=== PATIENT | female | born 2005 | race American Indian/Alaskan Native ===

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

== ENCOUNTER → 2023-06-04 13:28 | Outpatient (CLI) | payer MEDICAID, SELFPAY ==
[2019-06-25 05:36] VITALS: BMI 39.2
[2023-06-04 14:06] LABS: Add Manual Diff / Slide Review NO; Basophils Absolute Auto 0 /uL (0-100); Basophils Percent Auto 0.3 % (0-2); Eosinophils Absolute Auto 100 /uL (0-450); Eosinophils Percent Auto 0.5 % (2-4); Hematocrit 34.1 % (36-46); Hemoglobin 11.4 g/dL (12.0-16.0); Lymphocytes Absolute Auto 2300 /uL (1100-4500); Lymphocytes Percent Auto 19.6 % (25-40); Mean Corpuscular HGB Conc 33.5 % (30-36); Mean Corpuscular Hemoglobin 28.1 PG (26-34); Mean Corpuscular Volume 83.9 fL (80-100); Monocytes Absolute Auto 500 /uL (0-900); Monocytes Percent Auto 4.4 % (3-14); Neutrophils Absolute Auto 9000 /uL (1500-7000); Neutrophils Percent Auto 75.2 % (50-75); Platelet Count 368 X10^3/uL (150-400); Red Blood Cell Count 4.07 X10^6/uL (4.0-5.2); Red Cell Distribution Width 15.3 % (11.6-14.8)
[2023-06-04 15:11] LABS: Appearance Urine UA CLEAR; Bilirubin Urine UA NEGATIVE (NEGATIVE); Color Urine UA YELLOW; Glucose Urine UA NEGATIVE (Negative); Ketones Urine UA NEGATIVE (NEGATIVE); Leukocyte Esterase Urine UA NEGATIVE (NEGATIVE); Nitrite Urine UA NEGATIVE (Negative); Occult Blood Urine UA NEGATIVE (Negative); Protein Urine UA NEGATIVE (Negative); Specific Gravity Urine UA 1.015 (1.000-1.035); Urobilinogen Urine UA 0.2 E.U./dL (0.2)
[2023-06-05 03:23] LABS: RPR Screen Non Reactive (Non Reactive)
[2023-06-05 09:11] LABS: Varicella IgG Antibody 545 index (Immune >165)
[2023-06-05 16:47] LABS: Hepatitis B Surface Antigen NEGATIVE s/c (NEGATIVE); Rubella Antibody IgG 5.3 IU/mL (>15)
[2023-06-05 17:03] LABS: HIV 1 & 2 Ab/Ag 4th Gen Combo NEGATIVE (NEGATIVE); Hep C Virus Ab w/Reflex Quant NEGATIVE s/c (NEGATIVE)
== END ==
PROVIDERS: Referring Provider Student in an Organized Health Care Education/Training Program; Visit Provider Student in an Organized Health Care Education/Training Program
DX: Z34.80 Encounter for supervision of other normal pregnancy, unspecified trimester (principal)
CPT/HCPCS: 36415; 80055; 81003; 86787; 86803; 86850; 86900; 86901; 87086; 87389

== ENCOUNTER → 2023-07-16 11:00 | Outpatient (CLI) | payer MEDICAID, SELFPAY ==
[2019-06-25 05:36] VITALS: BMI 39.2
--- NOTE | 2023-07-16 11:01 | DI.US.S_ITS ---
PROCEDURE: US OB >= 14 WEEKS FETUS INDICATIONS: 20 week anatomy scan OUTSIDE/PRIOR DATING DATA: Last menstrual period (LMP): 01/26/2023 LMP-based estimated date of delivery (JAYDE): 11/02/2023 First dating scan (date and location): Not available Estimated date of delivery (JAYDE) from first dating scan: Not available The calculations are made using the working JAYDE of 11/02/2023. TECHNIQUE: Real-time scanning was performed of the fetus, with image documentation and biometric measurements. Endovaginal scanning: Not indicated COMPARISON: None. FINDINGS: General: A single living intrauterine gestation is present. Presentation: Cephalic Placenta: Placental position is posterior, without previa. Amniotic fluid index: 18 cm, normal range is 5-24 cm. Single deepest vertical pocket is 5.4 cm. heart rate: 140 beats per minute. Maternal cervical canal: 3.4 cm long. Normal lower limit is 2.5 cm. biometrics: Biparietal diameter: 5.9 cm, 24 weeks, 0 day Head circumference: 21.7 cm, 23 weeks, 5 days Abdominal circumference: 19.3 cm, 24 weeks, 0 day Femur length: 4.5 cm, 24 weeks, 5 days Clinically estimated gestational age: 24 weeks, 3 days Composite gestational age from present scan: 24 weeks, 1 day Estimated weight and percentile: 679 grams, 34 percent Anatomic survey: Neuro: Ventricles are non-dilated at less than 10 mm. Cisterna magna is normal at 3-11 mm. Cerebellum is normal in size and morphology. Nuchal skin fold: Normal at less than 6 mm between 14-21 weeks gestational age. Face: Nose and lips, facial profile are normal. Spine: No evidence for spina bifida. Heart: 4-chambered heart is present, with normal ventricular outflow tracts. Diaphragm: Diaphragm is intact. Stomach: Left-sided stomach is present. Kidneys: No hydronephrosis. Normal is less than 5 mm in 2nd trimester, less than 7 mm in 3rd trimester. Cord: 3-vessel cord has orthotopic insertion. Bladder: Normal in size. Extremities: All 4 extremities identified. IMPRESSION: 1. Single live intrauterine gestation with fetus in cephalic presentation. heart rate is 140 beats per minute. Normal amount of amniotic fluid. Normal growth. Estimated weight is at 34 percent. 2. Normal anatomic survey. We strive to produce accurate, complete, and clear reports of imaging services. To assist us in improving patient care, this report was composed using standard report templates and voice recognition software. Therefore, it may contain abnormal punctuation, insertions and/or omissions. Occasional wrong-word or sound-alike substitutions may occur. Though we review the report and make efforts to correct it, we do recommend that the report be read carefully in proper context to recognize any text inaccuracies. Dictated by: Tolu Nur M.D. on 07/16/2023 at 16:13 Approved by: Tolu Nur M.D. on 07/16/2023 at 16:15
== END ==
LOC: US 11:01
PROVIDERS: Referring Provider Student in an Organized Health Care Education/Training Program; Visit Provider Student in an Organized Health Care Education/Training Program
DX: Z36.89 Encounter for other specified antenatal screening (principal); Z3A.20 20 weeks gestation of pregnancy
CPT/HCPCS: 76811

== ENCOUNTER → 2023-09-26 14:08 | Outpatient (CLI) | payer MEDICAID, SELFPAY ==
[2023-07-31 14:21] VITALS: BMI 39.2
[2023-09-26 15:31] LABS: Hematocrit 35.1 % (36-46); Hemoglobin 11.7 g/dL (12.0-16.0)
[2023-09-26 15:50] LABS: GTT (PREG) 1 Hour PP 50gm Dose 103 mg/dL (76-139)
== END ==
LOC: LAB 14:09
PROVIDERS: PCP Student in an Organized Health Care Education/Training Program; Referring Provider Student in an Organized Health Care Education/Training Program; Visit Provider Student in an Organized Health Care Education/Training Program
DX: Z3A.24 24 weeks gestation of pregnancy (principal)
CPT/HCPCS: 36415; 82950; 85014; 85018

== ENCOUNTER → 2023-10-10 14:33 | Outpatient (CLI) | payer MEDICAID, SELFPAY ==
[2023-07-31 14:21] VITALS: BMI 39.2
[2023-10-11 15:38] LABS: Strep Grp B PCR NEG for Grp B Strep
== END ==
PROVIDERS: PCP Student in an Organized Health Care Education/Training Program; Visit Provider Student in an Organized Health Care Education/Training Program
DX: O99.820 Streptococcus B carrier state complicating pregnancy (principal); Z3A.36 36 weeks gestation of pregnancy
CPT/HCPCS: 87653

== ENCOUNTER 2023-10-17 13:30 | Outpatient (CLI) | payer MEDICAID, SELFPAY ==
[2023-07-31 14:21] VITALS: BMI 39.2
== END 2023-10-17 13:50 | disposition home or self-care (01) ==
LOC: LABOR 13:41 → OB 10-20 09:12
PROVIDERS: PCP Student in an Organized Health Care Education/Training Program; Referring Provider Student in an Organized Health Care Education/Training Program; Visit Provider Student in an Organized Health Care Education/Training Program
DX: O47.1 False labor at or after 37 completed weeks of gestation (principal); O99.213 Obesity complicating pregnancy, third trimester; E66.9 Obesity, unspecified; Z3A.37 37 weeks gestation of pregnancy
CPT/HCPCS: 59025; G0378; G0379

== ENCOUNTER 2023-10-24 13:00 | Outpatient (CLI) | payer MEDICAID, SELFPAY ==
[2023-07-31 14:21] VITALS: BMI 39.2
== END 2023-10-24 13:35 | disposition home or self-care (01) ==
LOC: LABOR 13:31 → OB 10-27 07:51
PROVIDERS: PCP Student in an Organized Health Care Education/Training Program; Referring Provider Student in an Organized Health Care Education/Training Program; Visit Provider Student in an Organized Health Care Education/Training Program
DX: O99.213 Obesity complicating pregnancy, third trimester (principal); Z3A.38 38 weeks gestation of pregnancy
CPT/HCPCS: 59025; G0378; G0379

== ENCOUNTER 2023-10-24 14:41 | Outpatient (CLI) | payer MEDICAID, SELFPAY ==
[2023-07-31 14:21] VITALS: BMI 39.2
[2023-10-24 15:22] LABS: Add Manual Diff / Slide Review NO; Basophils Absolute Auto 100 /uL (0-100); Basophils Percent Auto 0.5 % (0-2); Eosinophils Absolute Auto 0 /uL (0-450); Eosinophils Percent Auto 0.2 % (2-4); Hematocrit 36.9 % (36-46); Hemoglobin 12.2 g/dL (12.0-16.0); Lymphocytes Absolute Auto 2300 /uL (1100-4500); Lymphocytes Percent Auto 17.9 % (25-40); Mean Corpuscular HGB Conc 33.1 % (30-36); Mean Corpuscular Hemoglobin 28.8 PG (26-34); Mean Corpuscular Volume 87.2 fL (80-100); Monocytes Absolute Auto 500 /uL (0-900); Monocytes Percent Auto 4.2 % (3-14); Neutrophils Absolute Auto 9800 /uL (1500-7000); Neutrophils Percent Auto 77.2 % (50-75); Platelet Count 275 X10^3/uL (150-400); Red Blood Cell Count 4.23 X10^6/uL (4.0-5.2); Red Cell Distribution Width 15.7 % (11.6-14.8); White Blood Cell Count 12.6 X10^3/uL (4.5-11.0)
[2023-10-24 15:27] LABS: Alanine Aminotransferase 10 IU/L (<35); Albumin 3.6 g/dL (3.5-5.0); Albumin Globulin Ratio 1.1 (1.0-2.8); Alkaline Phosphatase 156 U/L (38-126); Aspartate Aminotransferase 21 IU/L (14-36); Bilirubin Total 0.3 mg/dL (0.2-1.3); Blood Urea Nitrogen 7 mg/dL (7-17); Calcium 8.4 mg/dL (8.4-10.2); Carbon Dioxide 24 mmol/L (22-32); Chloride 107 mmol/L (98-107); Estimated Glomerular Filt Rate > 60 mL/min (>60); Globulin 3.2 g/dL (1.7-4.1); Glucose 77 mg/dL (70-100); HEMOLYSIS < 15 (0-50); Potassium 4.1 mmol/L (3.4-5.1); Sodium 136 mmol/L (137-145); Total Protein 6.8 g/dL (6.3-8.2)
[2023-10-24 16:21] LABS: Creatinine Urine Random 119.36 mg/dL; Protein (Total) Urine Random 31 mg/dL (0-12); Protein Creatinine Ratio Urine 0.25 GRAM/24H
== END 2023-10-24 16:05 | disposition home or self-care (01) ==
LOC: LABOR 15:56 → OB 11-13 13:35
PROVIDERS: PCP Student in an Organized Health Care Education/Training Program; Referring Provider Student in an Organized Health Care Education/Training Program; Visit Provider Student in an Organized Health Care Education/Training Program
DX: O99.213 Obesity complicating pregnancy, third trimester (principal); Z3A.38 38 weeks gestation of pregnancy
CPT/HCPCS: 36415; 59025; 80053; 82570; 84156; 85025; G0378; G0379

== ENCOUNTER 2023-10-28 04:58 | Inpatient (IN) | payer MEDICAID, SELFPAY ==
[2023-10-24 16:06] VITALS: BMI 39.2
[2023-10-28 06:23] VITALS: BP 124/72
[2023-10-28 06:35] LABS: Add Manual Diff / Slide Review NO; Basophils Absolute Auto 100 /uL (0-100); Basophils Percent Auto 0.7 % (0-2); Eosinophils Absolute Auto 0 /uL (0-450); Eosinophils Percent Auto 0.2 % (2-4); Hematocrit 38.4 % (36-46); Hemoglobin 12.5 g/dL (12.0-16.0); Lymphocytes Absolute Auto 2800 /uL (1100-4500); Lymphocytes Percent Auto 18.8 % (25-40); Mean Corpuscular HGB Conc 32.6 % (30-36); Mean Corpuscular Hemoglobin 28.8 PG (26-34); Mean Corpuscular Volume 88.2 fL (80-100); Monocytes Absolute Auto 700 /uL (0-900); Monocytes Percent Auto 4.4 % (3-14); Neutrophils Absolute Auto 11500 /uL (1500-7000); Neutrophils Percent Auto 75.9 % (50-75); Platelet Count 250 X10^3/uL (150-400); Red Blood Cell Count 4.35 X10^6/uL (4.0-5.2); Red Cell Distribution Width 15.3 % (11.6-14.8); White Blood Cell Count 15.1 X10^3/uL (4.5-11.0)
--- NOTE | 2023-10-28 06:35 | P.HPOB_ITS ---
OB HPI Date/Time Date of admission: 10/28/23 Date Patient Seen: 10/28/23 Time Patient Seen: 06:46 History of Present Condition Chief complaint: Labor JAYDE Calculator 2 Estimated Delivery Date Method Current WG Current Estimate 11/02/23 Ultrasound #1 39w 2d Other Estimates 10/14/23 LMP (Uncertain) 42w 0d Estimated Gestational Age (weeks): 39+2 : 2 Para: 0 Narrative: Patient is a 18-year-old 2 para 0 at 39-,2/7 weeks gestation who presented with spontaneous rupture of membranes with clear fluid at 2:00 a.m.. She has had an uncomplicated course. Her dates are based on a first- trimester ultrasound. She is having coupled contractions. care: good care, initiated at week # (9), number of visits (10) and pounds weight gain (24) Dating criteria OB: based on 1st trimester US only Ultrasounds: normal 1st trimester US and normal mid trimester US Obstetrical complications: none and gestational hypertension (Last few weeks) Medical complications OB: none Preadmission Labs Last OB Lab Results: 2 Blood Type O Positive 06/04/23 13:31 Antibody Screen Negative 06/04/23 13:31 Hematocrit 38.4 % (36-46) 10/28/23 06:15 Hemoglobin 12.5 g/dL (12.0-16.0) 10/28/23 06:15 Hepatitis B Surface Antigen Negative s/c (NEGATIVE) 06/04/23 13 :31 Hepatitis C Antibody Negative s/c (NEGATIVE) 06/04/23 13:31 Rubella Antibody 5.3 IU/mL (>15) L 06/04/23 13:31 Varicella-Zoster IgG Antibody 545 index (Immune >165) 06/04/23 13:31 Glucose 1 Hour 103 mg/dL (76-139) 09/26/23 15:18 Group B Streptococcus (PCR) Neg for grp b strep 10/10/23 14:33 -: Urine: negative External Labs -: Urine: negative Prior (ies) Past Pregnancies Del. Date GA/Weeks Labor Lgth Wt Sex Route Outcome Anesthesia Place Delv Breastfeed Preg Comp Name 04/09/22 ~14 spontaneous Delivery Date: 04/09/22 Last Updated by: Kassi Barr RN passed spontaneously, no complications Evaluation Evaluation Baseline heart rate: 130 Variability: Moderate (11-25) monitor accelerations: Present Monitor Decelerations: Variable Contraction Frequency (minutes): 5 Uterine Contraction Intensity: Moderate Status: Category ll Dilation (cm): 3.5 Dilation: 3-4 cm Effacement: 60-70% station: -2 Position of cervix: mid Consistency: medium Ernandez score: 7 PFSH Medical History (Updated 04/05/23 @ 21:11 by Sintia Gonzales) Chicken pox (~2004) Acute cholecystitis Spontaneous miscarriage Obesity Patient denies medical problems Surgical History (Updated 04/05/23 @ 21:11 by Sintia Gonzales) Anesthesia History of dental surgery S/P cholecystectomy History of tonsillectomy Family History (Updated 03/27/23 @ 09:36 by Kassi Barr RN) Mother Diabetes mellitus Arthritis Grandfather Arthritis Diabetes mellitus Grandmother Breast cancer Grandfather Breast cancer Social History marital status: unmarried,single number of children: 0 household members: family lives independently: Yes caregiver/support person: No housing: house pets and animals: Yes education level: high school occupational status: previously employed current occupational exposures/hazards: No special robin needs: No travel history: over 6 months ago seatbelt use: always water heater temp set < 120 deg: Yes working smoke detector in home: Yes fire extinguisher in home: Yes carbon monox detector in home: Yes firearms in home: Yes do you feel safe at home: Yes Smoking Status: Former smoker Tobacco: How many years used: 3 second hand exposure: No alcohol intake: former substance use type: marijuana during the past year weight has: other well-balanced diet: rarely or never daily servings fruits/ve-4 caffeine: No Type(s) of exercise: walking Meds Home Medications and Allergies Home Medications Medication Instructions Recorded Confirmed Type vit no.95-ferrous 1 tab PO DAILY 03/27/23 10/24/23 History fumarate 28 mg-folic acid 800 mcg tablet ( Multivitamins) Allergies Allergy/AdvReac Type Severity Reaction Status Date / Time pineapple Allergy Intermediate Hives Verified 10/24/23 14:04 OB Exam Narrative Exam Narrative: Generally: Patient is standing and room due to back pain with contractions. Lungs: Clear to auscultation bilaterally Cardiovascular: Regular rate and rhythm Fundal height: 39 cm Estimated weight: 7-1/2-8 lb Extremities: Trace edema. 1+ DTRs Objective Labs 10/28/23 06:15 Assessment and Plan Assessment and Plan Assessment and Plan narrative: Assessment: 18-year-old 2 para 0 at 39-,2/7 weeks gestation status post spontaneous rupture membranes times 4-1/2 hours Clear fluid GBS negative Rubella nonimmune Based on contraction pattern possible occiput posterior presentation Patient desires unmedicated delivery Plan: Position changes and pelvic rocking MMR Expected management to spontaneous vaginal delivery Time Spent with Patient Total time spent with greater than 50% in coordination of care (as documented) at patient's floor/unit and/or counseling patient:: 15-24 minutes
--- NOTE | 2023-10-28 10:54 | PM.OBPNLAB ---
Date/Time Date Patient Seen: 10/28/23 Time Patient Seen: 09:30 Pain Control Pain control: tolerating well Pelvic Exam Dilation (cm): 5 Effacement (%): 90 station: -2 Amniotic membrane status: Ruptured Contractions Contractions on admission: regular Monitor mode: External Contraction pattern: Regular Contraction intensity: Moderate Status status: Category l Heart Rate Baseline: 145 Monitor Accelerations: Present Monitor Decelerations: Absent Monitor Variability: Moderate Assessment and Plan Assessment: active labor Plan: continuous present management Comments: Continue position changes. Plan for vaginal delivery.
--- NOTE | 2023-10-28 13:29 | PM.OBPNLAB ---
Date/Time Date Patient Seen: 10/28/23 Time Patient Seen: 12:50 Pain Control Pain control: tolerating well Pelvic Exam Dilation (cm): 9.5 Effacement (%): 90 station: -2 Amniotic membrane status: Ruptured Contractions Contractions on admission: irregular Monitor mode: External Pitocin rate (mU/min): 4 Contraction frequency (min): 4 Contraction pattern: Regular Contraction intensity: Moderate Status status: Category l Heart Rate Baseline: 145 Monitor Accelerations: Present Monitor Decelerations: Early Monitor Variability: Moderate Assessment and Plan Assessment: active labor Plan: continuous present management and begin patient augmentation Comments: Patient 9.5/100/-1. Pushing started but then anterior lip noticed. Pitocin started and pushing stopped. Patient on left side, peanut ball in between legs. Baby is OP positioning. Continue towards vaginal delivery.
--- NOTE | 2023-10-28 14:49 | P.PCNOB_ITS ---
Events: Induced HTN Labor & Delivery Delivery date: 10/28/23 Cervical ripening method: none Induction method: none Delivery augmentation: pitocin Delivery monitor: external FHT Route of delivery: L&D Laceration Description: Periurethral - 1st Degree Delivery repair: vicryl Estimated blood loss (mL): 250 Anesthesia Type: Local Narrative: Patient was found to be complete. With ongoing pushing efforts baby's head del ivered in OA positioning. The body delivered without difficulty on the next push. There was a large gush of amniotic fluid and blood. Cord clamping was delayed 5 minutes. Placenta delivered with external fundal massage and gentle traction. There were trailing membranes that were removed with ringed forceps and uterine sweep. Bleeding slowed and stopped. Pitocin was given per protocol. There was a hemostatic first degree perineal laceration. There was a left first degree periurethral laceration that was repaired with 3-0 vicryl and local anesthetic. Estimated blood loss was 250 cc. Plan for aftercare: Routine care
[2023-10-29 14:26] LABS: Urine Chlamydia NOT DETECTED; Urine N gonorrhoeae NOT DETECTED
--- NOTE | 2023-10-29 16:43 | PM.OBDS.1 ---
Discharge Providers Provider Date of admission: 10/28/23 04:58 Discharge Date: 10/29/23 Primary care physician: Tiffany Argueta MD Consults: 10/28/23 06:23 Consult to Anesthesiology Urgent Comment: Consulting Provider: Anesthesiologist Reason for consultation: Epidural Discharge provider: Keshav Burgess MD Summary Hospital Course Date Patient Seen: 10/29/23 Time Patient Seen: 13:00 Diagnoses: Hospital Course: Admitted for normal labor after SROM on 10/28/2023. Progressed adequately with Pitocin augmentation to complete dilation over the course of 12 hours. She had an uncomplicated of a live female infant with a hemostatic first-degree perineal laceration and a first-degree periurethral laceration that was repaired. Her course was uncomplicated. At discharge patient is ambulating well, tolerating normal diet, breast-feeding without difficulty, and pain is adequately controlled. She reports bleeding is similar to normal menses. Peripartum Data Infant Delivery Method: Natural Vaginal Laceration Description: Periurethral - 1st Degree and Perineal - 1st Degree complications: none 1: Gender: Female Disposition of : home Discharge Diagnosis (1) (spontaneous vaginal delivery): Start Date: 10/28/23 Status: Acute (2) Mother currently breast-feeding: Start Date: 10/28/23 Status: Acute Status at Discharge Cognitive/behavioral status at discharge: at baseline, oriented Functional status at discharge: independent ambulation Overall status at discharge: patient is back to baseline Time Spent with Patient Time attestation: Total time spent providing and/or coordinating discharge services: 30 minutes Objective Labs 10/28/23 06:15 Labs: Laboratory Results - last 24 hr 10/29/23 12:46 Ur Chlamydia DNA (PCR) Not detected N gonorrhoeae DNA (PCR) Not detected Exam Narrative Exam Narrative: General: Well-appearing, well-nourished, no distress HEENT: Moist mucous membranes, no pallor CV: Regular rate and rhythm, no murmur auscultated Resp: CTAB, comfortable work of breathing Abdomen: Soft, bowel sounds present, fundus firm below umbilicus with appropriate tenderness Extremities: No edema, no calf tenderness or evidence of DVT Discharge Plan Discharge Plan Patient Disposition: Home Provider Discharge Comment: Please call clinic to schedule her 6 week visit Discharge orders & Medications Prescriptions: New ibuprofen 600 mg tablet 600 mg PO QID PRN (Reason: pain) Qty: 60 0RF lanolin 50 % cream 1 applic topical TID-QID PRN (Reason: skin irritation) Qty: 113 2RF polyethylene glycol 3350 17 gram/dose powder 17 g PO DAILY Qty: 510 2RF Dermoplast (with menthol) 20-0.5 % aerosol 1 spray topical TID PRN (Reason: skin irritation) Qty: 56 0RF Continued PNV cmb#95-ferrous fumarate-FA [ Multivitamins] 28 mg iron- 800 mcg tablet 1 tab PO DAILY Follow up/Referrals: Tiffany Argueta MD [Primary Care Provider] - (6 week appt w/ Dr. Argueta: December 08 @ 12pm) Visit Report/Discharge Packet Stand Alone Forms: Discharge: Care, Patient Portal/API, Stroke Signs & Symptoms Discharge Data Primary Care Provider: Tiffany Argueta
[2023-10-29 16:45] VITALS: BP 108/72; PULSE 84; RESP 18; TEMP 36.8
[2023-10-29 17:12] VITALS: BP 108/72; PULSE 84; RESP 18; TEMP 36.8
== END 2023-10-29 18:23 | disposition home or self-care (01) | DRG 807 ==
PROVIDERS: Admitting Provider Obstetrics & Gynecology; PCP Student in an Organized Health Care Education/Training Program; Referring Provider Obstetrics & Gynecology; Visit Provider Obstetrics & Gynecology
DX: O13.4 Gestational [pregnancy-induced] hypertension without significant proteinuria, complicating childbirth (principal); Z37.0 Single live birth; Z3A.39 39 weeks gestation of pregnancy; O70.0 First degree perineal laceration during delivery
CPT/HCPCS: 36415; 59050; 85025; 86850; 86900; 86901; 87491; 87591; G0379